=== PATIENT | female | born 1950 | race Caucasian/White ===

== ENCOUNTER → 2017-10-08 | Outpatient (CLI) | payer MEDICARE ==
[2014-04-28 05:15] VITALS: BP 144/7
[~2017-10-08] MED LIST: ACET500T68 PO; ACLI400A2 IH; CIPR500T PO; HYDR25TA9 PO; LORA10TA3 PO; METO50TA6 PO; MULT-208 PO; OMEG10006 PO; TELM80TA PO
--- NOTE | 2017-10-08 16:51 | RAD ---
Right leg venous Doppler study: Clinical indications: Right leg swelling and pain for approximately 1 month. Elevated d-dimer. History of lung cancer. Findings: Duplex sonography (including salas scale evaluation and color flow and waveform spectral analysis) of the proximal aspect of the greater saphenous vein and proximal aspect of the profunda femoral vein and the entire length of the common femoral and superficial femoral and popliteal veins and the tibioperoneal trunk and the proximal aspect of the posterior tibial and peroneal veins of the right leg was performed. Normal compressibility, augmentation of color Doppler flow after calf compression, and respiratory variation of Doppler flow is seen. Thus, there are no sonographic findings of deep venous thrombosis within these veins. Impression: There are no sonographic findings of deep venous thrombosis within the veins discussed above of the right lower extremity. Left leg venous Doppler study: Clinical indications: Left leg swelling and pain for approximately 1 month. Elevated d-dimer. History of lung cancer. Findings: Duplex sonography (including salas scale evaluation and color flow and waveform spectral analysis) of the proximal aspect of the greater saphenous vein and the proximal aspect of the profunda femoral vein and the entire length of the common femoral and superficial femoral and popliteal veins and the tibioperoneal trunk and the proximal aspect of the posterior tibial and peroneal veins of the left leg was performed. Normal compressibility, augmentation of color Doppler flow after calf compression, and respiratory variation of Doppler flow is seen. Thus, there are no sonographic findings of deep venous thrombosis within these veins. Impression: There are no sonographic findings of deep venous thrombosis within the veins discussed above of the left lower extremity.
== END | disposition home or self-care (01) ==
LOC: US 15:44
PROVIDERS: ATTEND Nurse Practitioner Family
DX: M79.604 Pain in right leg (principal); M79.605 Pain in left leg; M79.89 Other specified soft tissue disorders; R60.0 Localized edema; Z85.118 Personal history of other malignant neoplasm of bronchus and lung
CPT/HCPCS: 93970

== ENCOUNTER 2018-09-02 15:49 | Inpatient (IN) | payer MEDICARE ==
[~2018-09-02] VITALS: Ht 167.6 cm; Wt 104.3 kg
[~2018-09-02 15:49] MED LIST changes: +HYDR-2145 PO; -HYDR25TA9 PO
[2018-09-02 16:11] VITALS: BP 133/83
[2018-09-02] MEDS: IPRATRPIUM/ALBUTEROL 0.5/2.5MG 3 ML NEBU. NEB SCH ×2 (16:30→20:36)
--- NOTE | 2018-09-02 16:58 | RAD ---
Chest, 2 views, 09/02/2018: HISTORY: Lung cancer, chemotherapy, congestive heart failure Comparison is made to a study from 04/27/2014. A left Port-A-Cath extends into the superior vena cava. The heart is within normal limits in size. There is tortuosity of the thoracic aorta. The pulmonary vascularity is normal. Linear parenchymal opacities have developed in the left midlung and left base compatible with atelectasis and/or scarring. There is hazy infiltrate obscuring the posterior aspect of the left hemidiaphragm. There is blunting of the costophrenic angles on the left compatible with pleural fluid or scarring. No right-sided pleural fluid or significant infiltrate is seen. There are mild scattered spurs in the spine. IMPRESSION: 1. A left Port-A-Cath extends into the superior vena cava. 2. Pleural-parenchymal opacities have developed in the left mid and lower chest suggesting linear atelectasis, left basilar infiltrate and possible pleural fluid, although scarring could be contributing to these findings. Underlying neoplasm cannot be excluded. CT scanning may be useful for further evaluation, if clinically indicated. Electronically signed by: Quan Monteiro MD (09/02/2018 4:54 PM) [facility]
[2018-09-02 17:40] LABS: BASO % 0 % (0-3); EOS # 0.2 x10^3/uL (0.0-0.7); EOS % 4 % (0-3); HEMATOCRIT 28.7 % (36.0-47.0); HEMOGLOBIN 9.9 g/dL (12.0-15.5); LYMPH # 0.5 x10^3/uL (1.0-4.8); LYMPH % 12 % (24-48); MEAN CORPUSCULAR HEMOGLOBIN 33 pg (25-35); MEAN CORPUSCULAR HGB CONC 35 g/dL (31-37); MEAN CORPUSCULAR VOLUME 96 fL (79-100); MONO # 0.8 x10^3/uL (0.0-1.1); MONO % 19 % (0-9); NEUT # 2.6 x10^3uL (1.8-7.7); NEUT % 65 % (31-73); PLATELET COUNT 94 x10^3/uL (140-400); RED BLOOD COUNT 2.98 x10^6/uL (3.50-5.40); RED CELL DISTRIBUTION WIDTH 14.5 % (11.5-14.5)
[2018-09-02 17:56] LABS: ALBUMIN 2.7 g/dL (3.4-5.0); ALBUMIN/GLOBULIN RATIO 0.7 (1.0-1.7); CALCIUM 8.8 mg/dL (8.5-10.1); CREATININE 2.2 mg/dL (0.6-1.0); GFR 22.1; POTASSIUM 3.5 mmol/L (3.5-5.1); TOTAL BILIRUBIN 0.5 mg/dL (0.2-1.0); TOTAL PROTEIN 6.8 g/dL (6.4-8.2)
[2018-09-02] MEDS ORDERED: VANCOMYCIN 2 GM in IV NORMAL SALINE 500ML 500 ML IV ONE (18:00)
[2018-09-02] MEDS: VANCOMYCIN PER PHARMACY MC PRN (18:33)
[2018-09-02 19:45] VITALS: BP 124/75
[2018-09-02] MEDS ORDERED: FURO40TA4 PO (20:07)
[2018-09-02] MEDS ORDERED: ALBU0.63 NEB (20:07)
[2018-09-02] MEDS ORDERED: ALBU2.5V8 IH (20:07)
[2018-09-02] MEDS ORDERED: [UNRECOGNIZED DRUG - OTHER] PO (20:07)
[2018-09-02] MEDS ORDERED: CARV25TA2 PO (20:07)
[2018-09-02] MEDS ORDERED: POTA20TA4 PO (20:07)
[2018-09-02] MEDS ORDERED: ACET500T68 PO (20:07)
[2018-09-02] MEDS ORDERED: GUAI1TBM10 PO (20:07)
[2018-09-02] MEDS ORDERED: IPRA3AMP29 NEB (20:07)
[2018-09-02] MEDS ORDERED: BENZ100C PO (20:07)
[2018-09-02] MEDS ORDERED: TIOT4MIS3 IH (20:07)
[2018-09-02] MEDS ORDERED: ASPI-630 PO (20:07)
[2018-09-02] MEDS ORDERED: FOLI1TAB16 PO (20:07)
[2018-09-02] MEDS: LACTOBACILLUS RHAMNOSUS GG 1 CAPSULE. PO SCH (20:45)
[2018-09-02] MEDS: guaiFENesin DM 600/30MG 1 TAB TAB.ER.12H PO SCH (20:45)
[2018-09-02] MEDS: HEPARIN for SUB-Q USE 5,000 UNIT/ML VIAL. SQ SCH (22:01)
[2018-09-02 23:13] LABS: BACTERIA,URINE 0 /HPF (0-FEW); BILIRUBIN,URINE NEG (NEG); CLARITY,URINE CLEAR; COLOR,URINE YELLOW; GLUCOSE,URINE NEG (NEG); NITRITE,URINE NEG (NEG); RBC,URINE 0 /HPF (0-2); SQUAMOUS EPITHELIAL CELL,UR OCC /LPF; UROBILINOGEN,URINE 1 mg/dL (0.2 mg/dL); WBC,URINE OCC /HPF (0-4)
[2018-09-02 23:42] VITALS: BP 121/79
[2018-09-03 04:01] LABS: BASO % 0 % (0-3); EOS # 0.2 x10^3/uL (0.0-0.7); EOS % 4 % (0-3); HEMATOCRIT 26.2 % (36.0-47.0); HEMOGLOBIN 8.9 g/dL (12.0-15.5); LYMPH # 0.4 x10^3/uL (1.0-4.8); LYMPH % 11 % (24-48); MEAN CORPUSCULAR HEMOGLOBIN 33 pg (25-35); MEAN CORPUSCULAR HGB CONC 34 g/dL (31-37); MEAN CORPUSCULAR VOLUME 97 fL (79-100); MONO # 0.8 x10^3/uL (0.0-1.1); MONO % 23 % (0-9); NEUT # 2.3 x10^3uL (1.8-7.7); NEUT % 62 % (31-73); PLATELET COUNT 91 x10^3/uL (140-400); RED BLOOD COUNT 2.71 x10^6/uL (3.50-5.40); RED CELL DISTRIBUTION WIDTH 15.2 % (11.5-14.5); WHITE BLOOD COUNT 3.7 x10^3/uL (4.0-11.0)
[2018-09-03 04:11] LABS: CALCIUM 8.3 mg/dL (8.5-10.1); CREATININE 1.6 mg/dL (0.6-1.0); GFR 31.9; POTASSIUM 3.5 mmol/L (3.5-5.1)
[2018-09-03] MEDS: HEPARIN for SUB-Q USE 5,000 UNIT/ML VIAL. SQ SCH ×3 (05:35→21:38)
[2018-09-03] MEDS: IPRATRPIUM/ALBUTEROL 0.5/2.5MG 3 ML NEBU. NEB SCH ×4 (05:37→20:08)
[2018-09-03 05:51] VITALS: BP 140/69
[2018-09-03] MEDS: guaiFENesin DM 600/30MG 1 TAB TAB.ER.12H PO SCH ×2 (09:39→21:37)
[2018-09-03] MEDS: LACTOBACILLUS RHAMNOSUS GG 1 CAPSULE. PO SCH ×2 (09:39→21:37)
[2018-09-03] MEDS ORDERED: ALBUTEROL SULFATE 2.5 MG/3 ML NEBU. IH PRN (10:15)
[2018-09-03] MEDS ORDERED: BENZONATATE 100 MG CAPSULE. PO PRN (10:30)
[2018-09-03 10:50] VITALS: BP 114/67
[2018-09-03] MEDS: FUROSEMIDE 40 MG TABLET PO SCH (11:00)
[2018-09-03] MEDS: CARVEDILOL 12.5 MG TABLET PO SCH (11:41)
[2018-09-03] MEDS: FOLIC ACID 1 MG TABLET PO SCH (11:41)
[2018-09-03] MEDS: POTASSIUM CHLORIDE 20 MEQ TABLET.ER. PO SCH (11:41)
[2018-09-03] MEDS: ASPIRIN 81 MG TAB.CHEW PO SCH (11:41)
[2018-09-03] MEDS ORDERED: NON FORMULARY ITEM (Albuterol Sulfate (Albuterol Sulfate Neb Soln) 1 VIAL) NEB SCH (13:00)
[2018-09-03] MEDS ORDERED: IPRATRPIUM/ALBUTEROL 0.5/2.5MG 3 ML NEBU. NEB SCH (13:00)
--- NOTE | 2018-09-03 14:45 | RAD ---
CT of the chest without contrast, 09/03/2018: HISTORY: Lung cancer, cough, shortness of breath Noncontrast scans were obtained as requested and compared to a study from 02/14/2014. There is volume loss on the left. There are surgical clips at the left hilum. There is an irregular elongated opacity extending from the left hilum posterior laterally into the left lower chest. There is mild pleural thickening posterolaterally. There is a small amount of fluid in the posterior gutter. Overlying posterior lateral rib deformities are probably postsurgical. There are also left perihilar opacities extending medially in the left upper chest which may represent scarring. There are also hazy left perihilar groundglass opacities. There are mild peripheral linear opacities in the right lung compatible with scars. No right lung consolidation or mass is seen. There is no evidence of right-sided pleural fluid. A left Port-A-Cath extends into the superior vena cava. There is moderate calcific plaquing of the thoracic aorta. Minimal coronary artery calcification is present. There is a trace amount of pericardial fluid. Extensive mediastinal adenopathy seen on the previous study has resolved. An unchanged cyst is noted in the left lobe of liver. Moderate multilevel degenerative change is present in the spine. IMPRESSION: 1. Postsurgical change on the left with volume loss. 2. Left perihilar parenchymal and pleural opacities may represent scarring, although residual or recurrent neoplasm cannot be excluded, particularly in the left infrahilar region. A component of pneumonia also cannot be excluded. Correlation with more recent CT imaging if available would be most helpful. 3. Trace amount of pleural fluid posteriorly in the left base. 4. Resolution of the previously seen mediastinal adenopathy. PQRS Compliance Statement: One or more of the following individualized dose reduction techniques were utilized for this examination: 1. Automated exposure control 2. Adjustment of the mA and/or kV according to patient size 3. Use of iterative reconstruction technique Electronically signed by: Quan Monteiro MD (09/03/2018 2:41 PM) [facility]
[2018-09-03 15:50] VITALS: BP 110/71
[2018-09-03] MEDS: VANCOMYCIN 1.5 GM in IV NORMAL SALINE 500ML 500 ML IV SCH (17:45)
[2018-09-03 19:30] VITALS: BP 103/56
[2018-09-03] MEDS: ACETAMINOPHEN 500 MG TABLET PO PRN (21:37)
[2018-09-03 22:35] LABS: FECAL OB PT NEGATIVE (NEG)
--- NOTE | 2018-09-03 22:40 | PN ---
DATE: SUBJECTIVE: A 68-year-old female admitted with cellulitis as well as possible pneumonia. The patient has a history of lung cancer and a CT scan was performed on her. The patient also had cellulitis to her legs, right greater than left, seems to be improving with that. We will continue to monitor her accordingly. Continue with IV antibiotic therapy. OBJECTIVE: VITAL SIGNS: Blood pressure 110/70, respiration 24, pulse 92 upwards of 110, afebrile. LUNGS: Diminished throughout, poor movement of air. CARDIOVASCULAR: Regular sinus rhythm. ABDOMEN: Soft, nontender. EXTREMITIES: Right leg less swollen, but still swollen compared to that of the left and infection still noted throughout. IMPRESSION: Sepsis, cellulitis of the leg, right leg especially as well as a history of lung cancer, pneumonia of unspecified etiology, anemia of chronic disease, iron deficiency, chronic kidney disease. PLAN: We will continue with the plan as noted above. MAGALY FREEDMAN MD DR: NUPUR/jan JOB#: [id number] / [id number]
[2018-09-03 23:07] VITALS: BP 100/65
[2018-09-04] MEDS: IPRATRPIUM/ALBUTEROL 0.5/2.5MG 3 ML NEBU. NEB SCH ×4 (05:10→20:10)
[2018-09-04] MEDS: HEPARIN for SUB-Q USE 5,000 UNIT/ML VIAL. SQ SCH ×3 (05:42→22:39)
[2018-09-04 05:49] VITALS: BP 111/65
[2018-09-04 06:03] LABS: BASO % 0 % (0-3); EOS # 0.2 x10^3/uL (0.0-0.7); EOS % 6 % (0-3); HEMATOCRIT 26.3 % (36.0-47.0); LYMPH # 0.4 x10^3/uL (1.0-4.8); LYMPH % 13 % (24-48); MEAN CORPUSCULAR HEMOGLOBIN 33 pg (25-35); MEAN CORPUSCULAR HGB CONC 34 g/dL (31-37); MEAN CORPUSCULAR VOLUME 98 fL (79-100); MONO # 0.6 x10^3/uL (0.0-1.1); MONO % 16 % (0-9); NEUT # 2.3 x10^3uL (1.8-7.7); NEUT % 65 % (31-73); PLATELET COUNT 122 x10^3/uL (140-400); RED CELL DISTRIBUTION WIDTH 14.7 % (11.5-14.5); WHITE BLOOD COUNT 3.5 x10^3/uL (4.0-11.0)
[2018-09-04 06:10] LABS: CALCIUM 8.6 mg/dL (8.5-10.1); CREATININE 1.3 mg/dL (0.6-1.0); GFR 40.5; POTASSIUM 3.8 mmol/L (3.5-5.1)
[2018-09-04] MEDS ORDERED: NON FORMULARY ITEM (Tiotropium Br/Olodaterol HCl (Stiolto Respimat Inhal Spray) 4 GM) IH SCH (09:00)
[2018-09-04] MEDS ORDERED: [UNRECOGNIZED DRUG - OTHER] PO SCH (09:00)
[2018-09-04] MEDS: FUROSEMIDE 40 MG TABLET PO SCH (09:00)
[2018-09-04] MEDS: LACTOBACILLUS RHAMNOSUS GG 1 CAPSULE. PO SCH ×2 (09:06→20:42)
[2018-09-04] MEDS: ASPIRIN 81 MG TAB.CHEW PO SCH (09:06)
[2018-09-04] MEDS: FOLIC ACID 1 MG TABLET PO SCH (09:06)
[2018-09-04] MEDS: guaiFENesin DM 600/30MG 1 TAB TAB.ER.12H PO SCH ×2 (09:06→20:42)
[2018-09-04] MEDS: CARVEDILOL 12.5 MG TABLET PO SCH (09:06)
[2018-09-04] MEDS: POTASSIUM CHLORIDE 20 MEQ TABLET.ER. PO SCH (09:13)
[2018-09-04 10:26] VITALS: BP 108/72
--- NOTE | 2018-09-04 10:51 | PN ---
DATE: 09/04/2018 SUBJECTIVE: She is a 68-year-old female with history of lung cancer and with cellulitis of her right leg and some in the left for that matter and pneumonia. A CT report of her chest they show recurrent lung cancer. Copy given to the patient, take to her oncologist, otherwise doing somewhat better. OBJECTIVE: VITAL SIGNS: Blood pressure 110/60, respiration 22, pulse 90, afebrile. GENERAL: The patient is alert and oriented. LUNGS: Diminished, some squeaking noted. CARDIOVASCULAR: Regular sinus rhythm. ABDOMEN: Soft, nontender. EXTREMITIES: Right leg shows improvement of the redness, but still very significant, continues to need IV antibiotic therapy. We will continue on the combination of antibiotics that she is on. IMPRESSION: Therefore of sepsis, cellulitis of the leg, right greater than left, lung cancer, pneumonia of unspecified etiology, anemia, iron deficiency, chronic kidney disease. MAGALY FREEDMAN MD DR: NUPUR/jan JOB#: [id number] / [id number]
[2018-09-04 14:37] VITALS: BP 110/75
[2018-09-04 17:20] LABS: VANC TR 12.8 mcg/mL (10.0-20.0)
[2018-09-04] MEDS: VANCOMYCIN 1.5 GM in IV NORMAL SALINE 500ML 500 ML IV SCH (17:44)
[2018-09-04 17:59] VITALS: BP 142/79
[2018-09-04] MEDS: VANCOMYCIN PER PHARMACY MC PRN (18:02)
[2018-09-04] MEDS: ACETAMINOPHEN 500 MG TABLET PO PRN (20:42)
[2018-09-04 22:49] VITALS: BP 123/76
[2018-09-05] MEDS: IPRATRPIUM/ALBUTEROL 0.5/2.5MG 3 ML NEBU. NEB SCH ×4 (05:16→20:20)
[2018-09-05 05:43] VITALS: BP 133/81
[2018-09-05] MEDS: HEPARIN for SUB-Q USE 5,000 UNIT/ML VIAL. SQ SCH ×3 (06:32→21:37)
[2018-09-05] MEDS: POTASSIUM CHLORIDE 20 MEQ TABLET.ER. PO SCH (09:06)
[2018-09-05] MEDS: FOLIC ACID 1 MG TABLET PO SCH (09:06)
[2018-09-05] MEDS: ASPIRIN 81 MG TAB.CHEW PO SCH (09:06)
[2018-09-05] MEDS: CARVEDILOL 12.5 MG TABLET PO SCH (09:06)
[2018-09-05] MEDS: LACTOBACILLUS RHAMNOSUS GG 1 CAPSULE. PO SCH ×2 (09:06→21:32)
[2018-09-05] MEDS: FUROSEMIDE 40 MG TABLET PO SCH (09:06)
[2018-09-05] MEDS: guaiFENesin DM 600/30MG 1 TAB TAB.ER.12H PO SCH ×2 (09:06→21:32)
[2018-09-05 10:42] VITALS: BP 106/70
--- NOTE | 2018-09-05 12:24 | PN ---
DATE: 09/05/2018 SUBJECTIVE: The patient with cellulitis of the leg as well as pneumonia. She is resting fairly comfortably, making fairly good progress. PHYSICAL EXAMINATION: VITAL SIGNS: Blood pressure 106/70, respiratory rate 20, pulse 90, afebrile. GENERAL: The patient is alert and oriented. LUNGS: Diminished, but clear than they have been. CARDIOVASCULAR: Regular sinus rhythm. ABDOMEN: Soft, nontender. EXTREMITIES: Right lower leg markedly more swollen than yesterday, but the redness seems to be dissipating and especially in the left is gone almost. The patient is alert. Lungs are diminished as noted. In any case, cellulitis of the legs, anemia, iron deficiency, pneumonia, history of lung cancer. The patient given copy of CT scan to take with her to her oncologist. Continue on IV antibiotic therapy. MAGALY FREEDMAN MD DR: NUPUR/jan JOB#: [id number] / [id number]
[2018-09-05] MEDS: levoFLOXacin 500 MG TABLET PO SCH (12:37)
[2018-09-05 15:05] VITALS: BP 141/81
[2018-09-05] MEDS: VANCOMYCIN 1.75 GM in IV NORMAL SALINE 500ML 500 ML IV SCH (17:46)
[2018-09-05 19:46] VITALS: BP 141/83
[2018-09-05 22:46] VITALS: BP 128/82
[2018-09-06] MEDS: IPRATRPIUM/ALBUTEROL 0.5/2.5MG 3 ML NEBU. NEB SCH ×4 (05:14→20:20)
[2018-09-06] MEDS: HEPARIN for SUB-Q USE 5,000 UNIT/ML VIAL. SQ SCH ×3 (05:49→21:48)
[2018-09-06 05:51] VITALS: BP 111/68
[2018-09-06] MEDS: POTASSIUM CHLORIDE 20 MEQ TABLET.ER. PO SCH (08:19)
[2018-09-06] MEDS: FOLIC ACID 1 MG TABLET PO SCH (08:19)
[2018-09-06] MEDS: FUROSEMIDE 40 MG TABLET PO SCH (08:19)
[2018-09-06] MEDS: guaiFENesin DM 600/30MG 1 TAB TAB.ER.12H PO SCH ×2 (08:19→21:19)
[2018-09-06] MEDS: ASPIRIN 81 MG TAB.CHEW PO SCH (08:19)
[2018-09-06] MEDS: CARVEDILOL 12.5 MG TABLET PO SCH (08:20)
[2018-09-06] MEDS: levoFLOXacin 500 MG TABLET PO SCH (08:20)
[2018-09-06] MEDS: LACTOBACILLUS RHAMNOSUS GG 1 CAPSULE. PO SCH ×2 (08:20→21:19)
[2018-09-06 12:38] VITALS: BP 108/77
--- NOTE | 2018-09-06 17:09 | PN ---
DATE: SUBJECTIVE: A 68-year-old female in with cellulitis of her legs bilaterally as well as pneumonia. The patient is resting fairly comfortably. She has made good progress but her legs are still inflamed and were still trying to get arrangements for her IV antibiotic therapy. The patient otherwise receiving vancomycin. There is some improvement in the legs, but still the lower right leg especially although it has come down may be about 6 cm, still probably about 20 cm area that is infected and swollen. OBJECTIVE: VITAL SIGNS: The patient otherwise temperature 97.8, blood pressure 110/60, respiratory rate 20 and pulse 70. LUNGS: Diminished, but clear. CARDIOVASCULAR: Stable. The patient is coughing up some phlegm. PLAN: We will go ahead and continue on IV antibiotic therapy. She is also showing signs of anemia, iron deficiency as well. We will continue to monitor the patient accordingly, IV antibiotic therapy. IMPRESSION: Cellulitis to the legs, pneumonia of unspecified etiology, history of lung cancer. The patient is given a copy of her CT scan to take to her oncologist because of the possible reoccurrence of the lung tumor itself. Continue on IV antibiotic therapy. MAGALY FREEDMAN MD DR: NUPUR/jan JOB#: [id number] / [id number]
[2018-09-06] MEDS: VANCOMYCIN 1.75 GM in IV NORMAL SALINE 500ML 500 ML IV SCH (17:24)
[2018-09-06 17:47] VITALS: BP 138/68
[2018-09-06 19:58] VITALS: BP 138/81
[2018-09-06] MEDS: ACETAMINOPHEN 500 MG TABLET PO PRN (21:19)
[2018-09-06 22:50] VITALS: BP 130/85
[2018-09-07 05:21] VITALS: BP 120/79
[2018-09-07] MEDS: IPRATRPIUM/ALBUTEROL 0.5/2.5MG 3 ML NEBU. NEB SCH ×3 (05:29→15:34)
[2018-09-07] MEDS: HEPARIN for SUB-Q USE 5,000 UNIT/ML VIAL. SQ SCH ×2 (06:15→13:43)
[2018-09-07] MEDS: ASPIRIN 81 MG TAB.CHEW PO SCH (08:16)
[2018-09-07] MEDS: CARVEDILOL 12.5 MG TABLET PO SCH (08:17)
[2018-09-07] MEDS: LACTOBACILLUS RHAMNOSUS GG 1 CAPSULE. PO SCH (08:17)
[2018-09-07] MEDS: POTASSIUM CHLORIDE 20 MEQ TABLET.ER. PO SCH (08:17)
[2018-09-07] MEDS: FUROSEMIDE 40 MG TABLET PO SCH (08:17)
[2018-09-07] MEDS: levoFLOXacin 500 MG TABLET PO SCH (08:18)
[2018-09-07] MEDS: guaiFENesin DM 600/30MG 1 TAB TAB.ER.12H PO SCH (08:18)
[2018-09-07] MEDS: FOLIC ACID 1 MG TABLET PO SCH (08:18)
[2018-09-07] MEDS ORDERED: ZINC OXIDE 4IN X 10YD TOPICAL BANDAGE TP ONE (09:45)
[2018-09-07] MEDS ORDERED: TRIAMCINOLONE ACETONIDE 0.1% TOPICAL CREAM 15GM TUBE. TP SCH (10:00)
[2018-09-07 10:40] LABS: BASO % 0 % (0-3); EOS # 0.2 x10^3/uL (0.0-0.7); EOS % 3 % (0-3); HEMATOCRIT 26.5 % (36.0-47.0); HEMOGLOBIN 9.1 g/dL (12.0-15.5); LYMPH # 0.2 x10^3/uL (1.0-4.8); LYMPH % 4 % (24-48); MEAN CORPUSCULAR HEMOGLOBIN 34 pg (25-35); MEAN CORPUSCULAR HGB CONC 34 g/dL (31-37); MEAN CORPUSCULAR VOLUME 99 fL (79-100); MONO # 0.6 x10^3/uL (0.0-1.1); MONO % 11 % (0-9); NEUT # 4.2 x10^3uL (1.8-7.7); NEUT % 81 % (31-73); PLATELET COUNT 238 x10^3/uL (140-400); RED BLOOD COUNT 2.67 x10^6/uL (3.50-5.40); RED CELL DISTRIBUTION WIDTH 15.5 % (11.5-14.5); WHITE BLOOD COUNT 5.2 x10^3/uL (4.0-11.0)
[2018-09-07 10:46] LABS: CREATININE 1.5 mg/dL (0.6-1.0); GFR 34.3; POTASSIUM 4.2 mmol/L (3.5-5.1)
--- NOTE | 2018-09-07 10:55 | PN ---
DATE: SUBJECTIVE: A 68-year-old female in with bilateral cellulitis as well as pneumonia. The patient's hemoglobin remained basically stable. She is feeling somewhat better. The inflammation to the legs seem to be somewhat improved, although the right leg is still markedly swollen and erythematous, although improved from where it has been. OBJECTIVE: VITAL SIGNS: Blood pressure 120/80, respiratory rate 22, pulse 88, afebrile. GENERAL: The patient is alert and oriented. LUNGS: Diminished, few squeaks. CARDIOVASCULAR: Regular sinus rhythm. ABDOMEN: Soft, nontender, no rebound or guarding. Positive bowel sounds. EXTREMITIES: No clubbing, cyanosis or edema. NEUROLOGIC: Intact. The patient otherwise will continue on IV antibiotic therapy through her port, may draw blood through the port. We are trying to get her discharge home with IV antibiotics at home and were in progress of getting that arranged through insurances. Because there is still significant inflammation to that right leg especially, although it is improved. I do think oral antibiotics would be sufficient enough to maintain the progress, so we made so far. IMPRESSION: Cellulitis of the legs, pneumonia, history of lung cancer, anemia, iron deficiency. PLAN: As above. MAGALY FREEDMAN MD DR: NUPUR/jan JOB#: [id number] / [id number]
[2018-09-07 11:25] VITALS: BP 104/68
[2018-09-07] MEDS ORDERED: LEVO500T59 PO (12:37)
[2018-09-07] MEDS ORDERED: VANC1.754 IV (12:37)
[2018-09-07] MEDS ORDERED: LACT1CAP19 PO (12:37)
[2018-09-07] MEDS: VANCOMYCIN 1.75 GM in IV NORMAL SALINE 500ML 500 ML IV SCH (13:43)
[2018-09-07 15:13] VITALS: BP 106/69
--- NOTE | 2018-09-09 18:38 | DS ---
DATE OF DISCHARGE: 09/07/2018 HOSPITAL COURSE: A 68-year-old female with a history of lung cancer, came in with bilateral cellulitis to her legs. The patient had failed outpatient therapy and was placed on IV vancomycin. Her chest x-ray also showed the possibility of a pneumonic process for which she also received IV antibiotic therapy. Copies of her CT scan were given to her to take to her oncologist because there is a component of possible residual or recurrent neoplasm; could not be excluded and she needs a followup with her oncologist as well. At any case, the patient made excellent progress. Her last blood pressure was about 110/70, respiratory rate 20, pulse 90, afebrile. Otherwise, her hemoglobin remained in the 9 gram to 26 range. Platelets were slightly low at first and then came back up into range itself. Her creatinine also showed she was dehydrated with a 2.2 creatinine, came down to 1.5. Her iron level was slightly low at 38, the legs improved. She will continue on IV antibiotic therapy as an outpatient. She has a port. IMPRESSION: Bilateral cellulitis to the legs, pneumonia of unspecified etiology, history of lung cancer, chronic kidney disease stage 3 with tubular stasis, iron deficiency anemia, moderate to severe protein malnutrition, hyperglycemia. The patient continued to be monitored carefully to make further evaluation as indicated as an outpatient with her oncologist. She will be on a regular diet, decreased activity, and see [facility]. MAGALY FREEDMAN MD DR: NUPUR/jan JOB#: [id number] / [id number]
== END 2018-09-07 17:15 | disposition home or self-care (01) | DRG 871 ==
LOC: 1 SOUTH 15:49
PROVIDERS: ADMIT Family Medicine; ATTEND Family Medicine
DX: A41.9 Sepsis, unspecified organism (principal); J18.9 Pneumonia, unspecified organism; N17.0 Acute kidney failure with tubular necrosis; E43 Unspecified severe protein-calorie malnutrition; L03.115 Cellulitis of right lower limb; L03.116 Cellulitis of left lower limb; I50.22 Chronic systolic (congestive) heart failure; I13.0 Hypertensive heart and chronic kidney disease with heart failure and stage 1 through stage 4 chronic kidney disease, or unspecified chronic kidney disease; D63.8 Anemia in other chronic diseases classified elsewhere; D50.9 Iron deficiency anemia, unspecified; Z85.118 Personal history of other malignant neoplasm of bronchus and lung; N18.3 Chronic kidney disease, stage 3 (moderate); E86.0 Dehydration; J44.9 Chronic obstructive pulmonary disease, unspecified; Z90.710 Acquired absence of both cervix and uterus
CPT/HCPCS: 36415; 71046; 71250; 80048; 80053; 80202; 81001; 82274; 83540; 83550; 83605; 83880; 84484; 85025; 85379; 87086; 93005; 94640; 94760; J1644; J3370; J7040; J7620; 97110; 97116; 97530